=== PATIENT | female | born 1950 ===

== ENCOUNTER 2017-11-17 23:16 | Emergency (ER) | payer MEDICAID ==
[2017-11-17 23:26] VITALS: BP 140/84; PULSE 60; TEMP 98.6; O2SAT 97
--- NOTE | 2017-11-17 23:54 | C.PDOC ---
History Of Present Illness Patient complains of insect bite to right arm today and noticed worsening redness after applying antifungal solution. Patient states she had [place] antifungal solution and applied it to the insect bite to help the itching and noticed the area became red and wherever the solution streaked the area is red. She denies any pain. Additionally patient has nonproductive cough for 2 days and wants to be evaluated while in ED. Time Seen by Provider: 11/17/17 23:44 Chief Complaint (Nursing): Abnormal Skin Integrity History Per: Patient History/Exam Limitations: no limitations Onset/Duration Of Symptoms: Days, Sudden Onset Past Medical History Reviewed: Historical Data, Nursing Documentation, Vital Signs Vital Signs: Last Vital Signs Temp 98.6 F 11/17/17 23:23 Pulse 60 11/17/17 23:23 Resp 18 11/17/17 23:23 BP 140/84 11/17/17 23:23 Pulse Ox 97 11/17/17 23:23 - Medical History PMH: No Chronic Diseases Surgical History: Appendectomy (20 YRS AGO) Family History: States: Unknown Family Hx - Social History Hx Alcohol Use: No Hx Substance Use: No - Immunization History Hx Tetanus Toxoid Vaccination: No Hx Influenza Vaccination: No Hx Pneumococcal Vaccination: No Review Of Systems Constitutional: Negative for: Fever, Malaise ENT: Negative for: Nose Congestion, Throat Pain Cardiovascular: Negative for: Chest Pain Respiratory: Positive for: Cough. Negative for: Shortness of Breath, Sputum, Wheezing Skin: Positive for: Rash Physical Exam - Physical Exam Appears: Non-toxic, No Acute Distress Skin: Warm, Dry, Other (2 insect bites to right arm at shoulder and forearm, there is erythema and streak to deltoid) Head: Atraumatic, Normacephalic Eye(s): bilateral: Normal Inspection Neck: Normal ROM Chest: Symmetrical Cardiovascular: Rhythm Regular, No Murmur Respiratory: Normal Breath Sounds, No Accessory Muscle Use, No Rhonchi, No Wheezing Extremity: Bilateral: Atraumatic, Normal ROM Pulses: Left Radial: Normal Neurological/Psych: Oriented x3, Normal Speech ED Course And Treatment O2 Sat by Pulse Oximetry: 97 Medical Decision Making Medical Decision Making: Patient with insect bite to arm and redness, there is a streak to one site does not appear infectious but allergic as there is a wheal. Patient has no pain and just pruritus. Treated with Benadryl. Additionally patient has cough, but denies fevers chills chest pain or SOB. Lungs clear bilaterally on exam. Will give Rx Disposition Counseled Patient/Family Regarding: Diagnosis, Need For Followup, Rx Given - Disposition Referrals: Non [facility] Provider, [Primary Care Provider] - Hardik Gorman [email or web address] [Outside] [employer] [Outside] Disposition: HOME/ ROUTINE Disposition Time: 23:50 Condition: GOOD Additional Instructions: Prescripcin enviada a la farmacia [place] Benadryl segn sea necesario para la picazn y la erupcin [place] medicamento para la tos segn sea necesario Ve a la clnica para ms cuidado Prescriptions: DiphenhydrAMINE [Benadryl] 25 mg PO Q4 PRN #30 cap PRN Reason: Rash Promethazine DM [Phenergan DM Syrup] 10 ml PO Q8 PRN #300 ml PRN Reason: Cough Instructions: Insect Bites and Stings (DC), Cough, Adult (DC) Print Language: GEORGIAN - POA Present On Arrival: None - Clinical Impression Clinical Impression: Insect bite - wound, Cough
[2017-11-18 00:30] VITALS: RESP 20
== END 2017-11-18 00:26 | disposition home or self-care (01) ==
LOC: SUPCPDRO 23:16 → C.ER 23:16
DX: S40.261A Insect bite (nonvenomous) of right shoulder, initial encounter (principal); S50.861A Insect bite (nonvenomous) of right forearm, initial encounter; W57.XXXA Bitten or stung by nonvenomous insect and other nonvenomous arthropods, initial encounter; R05 Cough